=== PATIENT | female | born 1960 | race Caucasian/White ===

== ENCOUNTER 2020-01-25 09:46 | Emergency (ER) | payer OTHER, SELFPAY ==
[~2020-01-25] VITALS: Ht 157.5 cm; Wt 75.7 kg
[2020-01-25 09:51] VITALS: BP 141/84
--- NOTE | 2020-01-25 09:58 | NUR ---
AMB TO BED 09
--- NOTE | 2020-01-25 10:25 | NUR ---
PT C/O COUGH, FEELING HOT, MUSCLE ACHES, SORE THROAT, WATERY DIARRHEA, AND STERNAL CP RADIATING TO MEDIAL BACK. DENIES SOB, NAUSEA, OR VOMITING. PATIENT STATES PAIN OF 6/10 AT THIS TIME; VSS; PATIENT POSITIONED FOR COMFORT; HOB ELEVATED; BEDRAILS UP X2; BED DOWN. ER MD MADE AWARE OF PT STATUS.
--- NOTE | 2020-01-25 11:08 | NUR ---
Covid swab obtained at bedside and sent to the lab.
[2020-01-25 13:24] VITALS: BP 107/61
--- NOTE | 2020-01-25 13:24 | NUR ---
Patient discharged with v/s stable. Written and verbal after care instructions given and explained. Patient alert, oriented and verbalized understanding of instructions. Ambulatory with steady gait. All questions addressed prior to discharge. ID band removed. Patient advised to follow up with PMD. Rx of hazine Hydrochloride/Dextromethorphan given. Patient educated on indication of medication including possible reaction and side effects. Opportunity to ask questions provided and answered.
== END 2020-01-25 13:24 | disposition home or self-care (01) ==
LOC: MED 09:46 → EEVIPCON 09:46 → MED 13:24
DX: U07.1 COVID-19 (principal); R05 Cough; I10 Essential (primary) hypertension; E11.9 Type 2 diabetes mellitus without complications; E78.5 Hyperlipidemia, unspecified; R19.7 Diarrhea, unspecified
CPT/HCPCS: 36600; 71045; 93005; 99285; Q0092; U0003

== ENCOUNTER 2021-02-06 14:50 | Emergency (ER) | payer OTHER, SELFPAY ==
[~2021-02-06] VITALS: Ht 157.5 cm; Wt 75.3 kg
[2021-02-06 15:12] VITALS: BP 165/80
--- NOTE | 2021-02-06 15:20 | NUR ---
Patient ambulated to bed 11 with steady/even gait.
--- NOTE | 2021-02-06 15:39 | NUR ---
60 YEAR OLD FEMALE COMPLAINS OF LEFT SHOULDER PAIN X 30MINS. PT STATES SHE FELL AND TRIPPED ONTO ARM, AND HEARD A POP. PT DENIES HITTING HEAD OR LOC. PT LEFT ARM RADIAL PULSE +3, CAP REFILL <3 SEC. PT STATES SENSATION INTACT, WITH LIMITED ROM. PT AOX4, BREATHING EVEN AND UNLABORED, SKIN WARM AND DRY. BED IN LOWEST POSITION, LOCKED, BED RAIL UPX1. PMH - DM2, HTN ALLERGIES - NKA
--- NOTE | 2021-02-06 15:52 | NUR ---
RAD at bedside
[2021-02-06] MEDS ORDERED: IBUPROFEN 600 MG TAB PO ONE (16:15)
[2021-02-06] MEDS ORDERED: IBUP-2213 PO (16:46)
--- NOTE | 2021-02-06 17:20 | NUR ---
Patient discharged with v/s stable. Written and verbal after care instructions about shoulder pain given and explained. Patient alert, oriented and verbalized understanding of instructions. Ambulatory with steady gait. All questions addressed prior to discharge. ID band removed. Patient advised to follow up with PMD. Rx of ibuprofen given. Patient educated on indication of medication including possible reaction and side effects. Opportunity to ask questions provided and answered.
[2021-02-06 17:38] VITALS: BP 165/80
== END 2021-02-06 17:20 | disposition home or self-care (01) ==
LOC: MED 14:50
DX: S40.012A Contusion of left shoulder, initial encounter (principal); E11.9 Type 2 diabetes mellitus without complications; I10 Essential (primary) hypertension; Z79.899 Other long term (current) drug therapy; W01.0XXA Fall on same level from slipping, tripping and stumbling without subsequent striking against object, initial encounter; Y93.01 Activity, walking, marching and hiking; Y92.89 Other specified places as the place of occurrence of the external cause; Y99.8 Other external cause status
CPT/HCPCS: 72040; 73000; 73030; 99284

== ENCOUNTER 2022-07-24 17:44 | Emergency (ER) | payer OTHER ==
[~2022-07-24] VITALS: Ht 157.5 cm; Wt 83.9 kg
[~2022-07-24 17:44] MED LIST: IBUP-2213 PO
[2022-07-24 17:58] VITALS: BP 174/80
[2022-07-24] MEDS ORDERED: NACL 0.9% 1,000 ML IV ONE (18:00)
[2022-07-24 18:35] LABS: BASOPHILS % (AUTO) 0.6 % (0.0-2.0); EOSINOPHILS # (AUTO) 0.2 K/uL (0-0.4); EOSINOPHILS % (AUTO) 2.7 % (0.0-4.0); HEMATOCRIT 40.5 % (36-48); HEMOGLOBIN 14.1 g/dL (12.0-16.0); LYMPHOCYTES # (AUTO) 2.9 K/uL (2.5-16.5); LYMPHOCYTES % (AUTO) 36.2 % (20.5-51.1); MEAN CORPUSCULAR HEMOGLOBIN 29 pg (27-31); MEAN CORPUSCULAR HGB CONC 35 g/dL (33-37); MONOCYTES # (AUTO) 0.5 K/uL (0.8-1.0); NEUTROPHILS # (AUTO) 4.4 K/uL (1.8-7.7); NEUTROPHILS % (AUTO) 54.5 % (42.2-75.2); PLATELET COUNT (AUTO) 309 K/uL (140-450); RED BLOOD CELL COUNT(AUTO) 4.83 MIL/uL (4.20-5.40); RED CELL DISTRIBUTION WIDTH 12.8 % (11.6-13.7); WHITE BLOOD COUNT (AUTO) 8.1 K/uL (4.8-10.8)
[2022-07-24] MEDS ORDERED: MECLIZINE 25 MG TAB PO ONE (18:40)
--- NOTE | 2022-07-24 18:40 | NUR ---
PT RECEIVED, CARE ASSUMED. PT PRESENTS SELF TO ER WITH C/O DIZZINESS, HEAD PAIN. CONNECTED PT TO TELE MONITOR. PT AWAITING TO BE SEEN BY
[2022-07-24 18:54] LABS: ALBUMIN 3.6 g/dL (3.4-5.0); ANION GAP 11.4 (8-16); CREATININE 0.7 mg/dL (0.6-1.3); POTASSIUM 4.4 mmol/L (3.5-5.1); TOTAL BILIRUBIN 0.4 mg/dL (0.0-1.0)
--- NOTE | 2022-07-24 19:19 | NUR ---
handoff received from ANITRA Bates. assumed care at this time. 1L bolus still infusing.
--- NOTE | 2022-07-24 19:56 | NUR ---
pt reports feeling better, reports no more dizziness.
[2022-07-24 19:57] VITALS: BP 175/81
--- NOTE | 2022-07-24 20:03 | NUR ---
updated daughter Naida on patient status.
[2022-07-24] MEDS ORDERED: MECL-303 PO (20:20)
--- NOTE | 2022-07-24 20:21 | NUR ---
IV removed, catheter intact and site benign. Applied folded 4x4 gauze and tape to stop bleeding.
[2022-07-24 22:15] LABS: APPEARANCE,URINE CLEAR (CLEAR); BILIRUBIN,URINE NEGATIVE (NEGATIVE); BLOOD, URINE NEGATIVE (NEGATIVE); COLOR,URINE STRAW (YELLOW); LEUKOCYTE ESTERASE ,URINE NEGATIVE (NEGATIVE); NITRITE, URINE NEGATIVE (NEGATIVE); UGLUCOSE 3+ (NEGATIVE)
== END 2022-07-24 20:25 | disposition home or self-care (01) ==
LOC: MED 17:44
DX: H81.10 Benign paroxysmal vertigo, unspecified ear (principal); R42 Dizziness and giddiness; E11.9 Type 2 diabetes mellitus without complications; I10 Essential (primary) hypertension; Z90.49 Acquired absence of other specified parts of digestive tract; Z90.710 Acquired absence of both cervix and uterus; Z79.899 Other long term (current) drug therapy
CPT/HCPCS: 36415; 71045; 80053; 81003; 83605; 85025; 87040; 87086; 93005; 96360; 99285; J8597; Q0092

== ENCOUNTER 2023-08-13 22:42 | Emergency (ER) | payer OTHER ==
[~2023-08-13] VITALS: Ht 157.5 cm; Wt 72.1 kg
[~2023-08-13 22:42] MED LIST changes: +MECL-303 PO
[2023-08-13 22:50] VITALS: BP 164/87; PULSE 90; RESP 18; TEMP 97.8; O2SAT 98
[2023-08-13] MEDS ORDERED: NACL 0.9% 1,000 ML IV ONE (23:05)
[2023-08-13 23:55] LABS: BASOPHILS # (AUTO) 0.1 K/uL (0.00-0.22); BASOPHILS % (AUTO) 0.9 % (0.0-2.0); EOSINOPHILS # (AUTO) 0.3 K/uL (0-0.4); EOSINOPHILS % (AUTO) 2.3 % (0.0-4.0); HEMATOCRIT 41.9 % (36-48); HEMOGLOBIN 14.5 g/dL (12.0-16.0); LYMPHOCYTES % (AUTO) 35.7 % (20.5-51.1); MEAN CORPUSCULAR HEMOGLOBIN 29 pg (27-31); MEAN CORPUSCULAR HGB CONC 35 g/dL (33-37); MEAN CORPUSCULAR VOLUME 83.9 fL (80-94); MONOCYTES # (AUTO) 0.9 K/uL (0.8-1.0); MONOCYTES % (AUTO) 7.8 % (1.7-9.3); NEUTROPHILS # (AUTO) 6.1 K/uL (1.8-7.7); NEUTROPHILS % (AUTO) 53.3 % (42.2-75.2); PLATELET COUNT (AUTO) 347 K/uL (140-450); RED BLOOD CELL COUNT(AUTO) 4.99 MIL/uL (4.20-5.40); RED CELL DISTRIBUTION WIDTH 12.9 % (11.6-13.7); WHITE BLOOD COUNT (AUTO) 11.3 K/uL (4.8-10.8)
[2023-08-14 00:19] LABS: ALBUMIN 3.5 g/dL (3.4-5.0); ANION GAP 12.7 (8-16); CALCIUM 9.7 mg/dL (8.5-10.1); CARBON DIOXIDE 29.6 mmol/L (21-32); CREATININE 0.7 mg/dL (0.6-1.3); POTASSIUM 4.3 mmol/L (3.5-5.1); TOTAL BILIRUBIN 0.4 mg/dL (0.0-1.0); TOTAL PROTEIN, SERUM 8.4 g/dL (6.4-8.2)
[2023-08-14] MEDS ORDERED: MORPHINE SULFATE 4 MG/ML SYR IVP ONE (00:50)
[2023-08-14 01:48] VITALS: O2SAT 98
[2023-08-14 01:49] VITALS: BP 178/80; PULSE 78; RESP 16
[2023-08-14 04:03] VITALS: O2SAT 98
== END 2023-08-14 06:35 | disposition home or self-care (01) ==
LOC: MED 22:42
DX: R10.12 Left upper quadrant pain (principal); R11.2 Nausea with vomiting, unspecified; R07.81 Pleurodynia; E11.9 Type 2 diabetes mellitus without complications; I10 Essential (primary) hypertension; Z79.899 Other long term (current) drug therapy; Z79.1 Long term (current) use of non-steroidal anti-inflammatories (NSAID)
CPT/HCPCS: 36415; 71045; 74177; 80053; 83690; 84484; 85025; 93005; 96361; 96374; 99285; J2270; J7030; Q0092; Q9967

== ENCOUNTER 2024-02-11 09:46 | Emergency (ER) | payer OTHER ==
[~2024-02-11] VITALS: Ht 157.5 cm; Wt 72.6 kg
[2024-02-11 10:09] VITALS: BP 125/68; PULSE 74; RESP 14; TEMP 98.7; O2SAT 99
[2024-02-11] MEDS: KETOROLAC 60 MG/2 ML VIAL IM ONE (10:41)
[2024-02-11] MEDS ORDERED: NIRM1TAB9 PO (11:11)
[2024-02-11] MEDS ORDERED: IBUP-2213 PO (11:11)
[2024-02-11 11:26] VITALS: BP 177/55; PULSE 74; RESP 13; TEMP 98.2; O2SAT 100
== END 2024-02-11 11:27 | disposition home or self-care (01) ==
LOC: MED 09:46
DX: U07.1 COVID-19 (principal); R51.9 Headache, unspecified; R19.7 Diarrhea, unspecified; E11.9 Type 2 diabetes mellitus without complications; I10 Essential (primary) hypertension; Z90.49 Acquired absence of other specified parts of digestive tract; Z90.710 Acquired absence of both cervix and uterus; Z79.1 Long term (current) use of non-steroidal anti-inflammatories (NSAID); Z79.899 Other long term (current) drug therapy
CPT/HCPCS: 96372; 99283; J1885